=== PATIENT | male | born 1960 | race Caucasian/White ===

== ENCOUNTER 2018-11-08 15:50 | Emergency (ER) | payer SELFPAY ==
[2018-11-08] MEDS ORDERED: Ketorolac 30 MG/ML SDV IVPUSH ONE (16:00)
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
--- NOTE | 2018-11-08 16:36 | CR ---
Indication: Trauma, chest pain Technique: Chest 2 views Comparison: None Findings: Cardiovascular and mediastinum: Heart size and vasculature are normal in caliber and appearance. Lungs and pleural spaces: Lungs are clear. No sign of infiltrate or mass. No sign of pleural effusion. No pneumothorax. Bones and soft tissues: No significant findings. Impression: Unremarkable chest. No sign of injury. Dictated by Efrain Caldwell MD @ Nov 08 2018 4:33PM Signed by Dr. Efrain Caldwell @ Nov 08 2018 4:34PM
== END 2018-11-08 16:53 | disposition home or self-care (01) ==
LOC: MW.ED 15:50
DX: M54.6 Pain in thoracic spine (principal); Z88.0 Allergy status to penicillin; V49.59XA Passenger injured in collision with other motor vehicles in traffic accident, initial encounter
CPT/HCPCS: 71046; 96374; 99283; J1885